=== PATIENT | male | born 1975 | race Caucasian/White ===

== ENCOUNTER 2016-05-18 06:26 | Emergency (ER) | payer OTHER ==
[~2016-05-18] VITALS: Ht 188 cm; Wt 74.0 kg
[~2016-05-18 06:26] MED LIST: LEXA10TA PO; LORA-475 PO; PHEN100 PO; PRAZ1 PO; SERO200T PO
[2016-05-18 06:28] VITALS: BP 127/72; PULSE 94; RESP 16; TEMP 98.1; O2SAT 97
[2016-05-18 07:18] VITALS: BP 125/77; PULSE 79; RESP 18; TEMP 97.8; O2SAT 99
[2016-05-18 09:09] LABS: AUTOMATED NEUTROPHIL # 3.8 TH/MM3 (1.8-7.7); BASOPHIL % 0.4 % (0.0-2.0); EOSINOPHIL % 0.4 % (0.0-4.0); HEMO FLAGS DIFF FINAL; LYMPH % 29.3 % (9.0-44.0); LYMPHOCYTE # 1.9 TH/MM3 (1.0-4.8); MEAN CELL VOLUME 90.3 FL (80.0-100.0); MEAN CORPUSCULAR HEMOGLOBIN 30.6 PG (27.0-34.0); MEAN CORPUSCULAR HGB CONC 33.9 % (32.0-36.0); MONO % 12.4 % (0.0-8.0); NEUT % 57.5 % (16.0-70.0); PLATELET COUNT 254 TH/MM3 (150-450); RED BLOOD COUNT 4.65 MIL/MM3 (4.50-5.90); RED CELL DISTRIBUTION WIDTH 14.7 % (11.6-17.2); WHITE BLOOD COUNT 6.5 TH/MM3 (4.0-11.0)
--- NOTE | 2016-05-18 09:17 | PD ---
HPI Chief Complaint: Psychiatric Symptoms Time Seen by Provider: 09:01 Travel History International Travel<30 days: No Contact w/Intl Traveler<30days: No Traveled to known affect area: No History of Present Illness HPI The patient is a 41-year-old male who presents emergency Department voluntarily for psychiatric evaluation. The patient has a history of PTSD and depression. The patient hasn't taken his Seroquel and other psychiatric medications, however , has not been taking his Dilantin for history of seizures. The patient's last seizure was approximately one month ago. The patient does have suicidal ideation, has previous episodes of suicide attempts with alcohol and drugs. The patient last drank alcohol last night and last used cocaine 2 days ago. He denies the ingestion of any medications in an attempt to kill himself. He does have auditory hallucinations, states voices are talking to him. Patient would like to be evaluated by psychiatry. He denies any current physical complaints including chest pain, shortness breath, nausea, vomiting, or abdominal pain. PFSH Past Medical History Blood Disorders: No Bipolar Disorder: Yes Anxiety: Yes Depression: Yes Heart Rhythm Problems: Yes (palpatations ) Cancer: No Cardiac Catheterization: Yes (10/2015 NO STENTS PLACED PER PT) Cardiovascular Problems: Yes ([place] ) High Cholesterol: No Chest Pain: Yes Diabetes: No Diminished Hearing: No Endocrine: No Genitourinary: Yes (Urinary frequency ) Headaches: Yes (See EMR) Hepatitis: Yes (C) Hypertension: No Immune Disorder: Yes (Hep C ) Implanted Vascular Access Dvce: No Musculoskeletal: Yes (arthritis right knee, chronic back pain. ) Neurologic: Yes (Bipolar disorder ) Psychiatric: Yes (Bipolar Disorder. ) Reproductive: No Respiratory: Yes (Difficulty breathing. ) Myocardial Infarction: Yes (OCTOBER 2015 PER PT) Seizures: Yes (See EMR) Tetanus Vaccination: Unknown Past Surgical History Eye Surgery: Yes (RIGHT) Other Surgery: Yes (Right eye surgery ) Social History Alcohol Use: Yes ( 4 4PACKSEVERYDAY) Tobacco Use: Yes (1 PKT DAILY) Substance Use: Yes (ALCOHOL, COCAINE) Allergies-Medications (Allergen,Severity, Reaction): Coded Allergies: Haldol (Verified Allergy, Severe, 05/18/16) per patient Reported Meds & Prescriptions Reported Meds & Active Scripts Active Minipress (Prazosin Hcl) 1 Mg Cap 1 Mg PO HS 3 Days Hold for symptoms of hypotension (including but not limited to light-headedness, dizziness, chest pain, shortness of breath) and call your outpatient provider. Reported Dilantin 100 Mg Kapseals (Phenytoin Sodium) 100 Mg Caper 200 Mg PO BID Ativan (Lorazepam) 2 Mg Tab 2 Mg PO BID Seroquel 200 mg (Quetiapine Fumarate) 200 Mg Tab 200 Mg PO HS Lexapro (Escitalopram Oxalate) 10 Mg Tab 10 Mg PO DAILY Review of Systems Except as stated in HPI: all other systems reviewed are Neg General / Constitutional: No: Fever Cardiovascular: No: Chest Pain or Discomfort Respiratory: No: Shortness of Breath Gastrointestinal: No: Nausea, Vomiting, Abdominal Pain Musculoskeletal: No: Weakness Neurologic: No: Dizziness Psychiatric: Positive: Depression, Suicidal Ideations, Disorder of Thought ( auditory hallucinations), Other (PTSD) Physical Exam Narrative GENERAL: Awake, alert, nontoxic-appearing 41 year old male who appears his stated age and is in no acute respiratory distress. SKIN: Warm and dry. HEAD: Atraumatic. Normocephalic. EYES: No scleral icterus. ENT: No nasal bleeding or discharge. Mucous membranes pink and moist. NECK: Trachea midline. No JVD. CARDIOVASCULAR: Regular rate and rhythm. No murmur appreciated. RESPIRATORY: No accessory muscle use. Clear to auscultation. Breath sounds equal bilaterally. GASTROINTESTINAL: Abdomen soft, non-tender, nondistended. No rebound tenderness. MUSCULOSKELETAL: No obvious deformities. No clubbing. No cyanosis. No edema. NEUROLOGICAL: Awake and alert. No obvious cranial nerve deficits. Motor grossly within normal limits. Normal speech. Oriented to person, place, month, and year. PSYCHIATRIC: Appropriate mood and affect; insight and judgment normal. Data Data Last Documented VS Vital Signs Date Time Temp Pulse Resp B/P Pulse Ox O2 Delivery O2 Flow Rate FiO2 05/18/16 07:18 78 18 05/18/16 07:18 97.8 125/77 99 Room Air Orders Complete Blood Count With Diff (05/18/16 08:41) Basic Metabolic Panel (Bmp) (05/18/16 08:41) Drug Screen, Random Urine (05/18/16 08:41) Alcohol (Ethanol) (05/18/16 08:41) Salicylates (Aspirin) (05/18/16 08:41) Tylenol (Acetaminophen) (05/18/16 08:41) Psych Screen (05/18/16 08:41) Phenytoin (Dilantin) (05/18/16 09:15) Phenytoin (Dilantin) (05/18/16 09:30) Labs Laboratory Tests Test 05/18/16 05/18/16 08:50 09:00 White Blood Count 6.5 TH/MM3 Red Blood Count 4.65 MIL/MM3 Hemoglobin 14.2 GM/DL Hematocrit 42.0 % Mean Corpuscular Volume 90.3 FL Mean Corpuscular Hemoglobin 30.6 PG Mean Corpuscular Hemoglobin 33.9 % Concent Red Cell Distribution Width 14.7 % Platelet Count 254 TH/MM3 Mean Platelet Volume 8.0 FL Neutrophils (%) (Auto) 57.5 % Lymphocytes (%) (Auto) 29.3 % Monocytes (%) (Auto) 12.4 % Eosinophils (%) (Auto) 0.4 % Basophils (%) (Auto) 0.4 % Neutrophils # (Auto) 3.8 TH/MM3 Lymphocytes # (Auto) 1.9 TH/MM3 Monocytes # (Auto) 0.8 TH/MM3 Eosinophils # (Auto) 0.0 TH/MM3 Basophils # (Auto) 0.0 TH/MM3 CBC Comment DIFF FINAL Differential Comment Sodium Level 140 MEQ/L Potassium Level 3.7 MEQ/L Chloride Level 103 MEQ/L Carbon Dioxide Level 29.4 MEQ/L Anion Gap 8 MEQ/L Blood Urea Nitrogen 8 MG/DL Creatinine 0.89 MG/DL Estimat Glomerular Filtration 93 ML/MIN Rate Random Glucose 72 MG/DL Calcium Level 8.5 MG/DL Salicylates Level LESS THAN 1.7 MG/DL Acetaminophen Level LESS THAN 2.0 MCG/ML Ethyl Alcohol Level LESS THAN 3 MG/DL Urine Opiates Screen NEG Urine Barbiturates Screen NEG Urine Amphetamines Screen NEG Urine Benzodiazepines Screen NEG Urine Cocaine Screen POS Urine Cannabinoids Screen NEG MDM Medical Decision Making Medical Screen Exam Complete: Yes Emergency Medical Condition: Yes Medical Record Reviewed: Yes Interpretation(s) Laboratory Tests Test 05/18/16 05/18/16 08:50 09:00 White Blood Count 6.5 TH/MM3 Red Blood Count 4.65 MIL/MM3 Hemoglobin 14.2 GM/DL Hematocrit 42.0 % Mean Corpuscular Volume 90.3 FL Mean Corpuscular Hemoglobin 30.6 PG Mean Corpuscular Hemoglobin 33.9 % Concent Red Cell Distribution Width 14.7 % Platelet Count 254 TH/MM3 Mean Platelet Volume 8.0 FL Neutrophils (%) (Auto) 57.5 % Lymphocytes (%) (Auto) 29.3 % Monocytes (%) (Auto) 12.4 % Eosinophils (%) (Auto) 0.4 % Basophils (%) (Auto) 0.4 % Neutrophils # (Auto) 3.8 TH/MM3 Lymphocytes # (Auto) 1.9 TH/MM3 Monocytes # (Auto) 0.8 TH/MM3 Eosinophils # (Auto) 0.0 TH/MM3 Basophils # (Auto) 0.0 TH/MM3 CBC Comment DIFF FINAL Differential Comment Sodium Level 140 MEQ/L Potassium Level 3.7 MEQ/L Chloride Level 103 MEQ/L Carbon Dioxide Level 29.4 MEQ/L Anion Gap 8 MEQ/L Blood Urea Nitrogen 8 MG/DL Creatinine 0.89 MG/DL Estimat Glomerular Filtration 93 ML/MIN Rate Random Glucose 72 MG/DL Calcium Level 8.5 MG/DL Salicylates Level LESS THAN 1.7 MG/DL Acetaminophen Level LESS THAN 2.0 MCG/ML Ethyl Alcohol Level LESS THAN 3 MG/DL Urine Opiates Screen NEG Urine Barbiturates Screen NEG Urine Amphetamines Screen NEG Urine Benzodiazepines Screen NEG Urine Cocaine Screen POS Urine Cannabinoids Screen NEG Differential Diagnosis Differential diagnosis includes mood disorder nos, schizoaffective disorder, bipolar affective disorder, PTSD, depression, suicidal ideation, substance induced mood disorder. Narrative Course Labs are drawn and sent. Patient states he has been noncompliant with his Dilantin, last seizure was one month ago. Dilantin level was sent to lab. Patient is medically cleared to be evaluated by psychiatry. Disposition as per psych. ABC and BMP are unremarkable. Alcohol was less than 3. Tox screen was positive for cocaine. Diagnosis Primary Impression: Bipolar disorder with psychotic features Additional Impression: PTSD (post-traumatic stress disorder) Condition: Stable Robert Sheets MD May 18, 2016 09:17
[2016-05-18 09:18] LABS: AMPHETAMINE, URINE NEG (NEG); BARBITURATES, URINE NEG (NEG); COCAINE, URINE POS (NEG)
[2016-05-18 09:28] LABS: ANION GAP 8 MEQ/L (5-15); BICARBONATE 29.4 MEQ/L (21.0-32.0); BLOOD UREA NITROGEN 8 MG/DL (7-18); CHLORIDE 103 MEQ/L (98-107); GLOMERULAR FILTRATION RATE 93 ML/MIN (>89); POTASSIUM 3.7 MEQ/L (3.5-5.1); SODIUM (NA) 140 MEQ/L (136-145)
[2016-05-18 09:29] LABS: ACETAMINOPHEN LESS THAN 2.0 MCG/ML (10.0-30.0)
[2016-05-18] MEDS ORDERED: PHENYTOIN SODIUM 100 MG CAP PO ONE (09:30)
[2016-05-18] MEDS ORDERED: PRAZ1 PO (09:53)
[2016-05-18] MEDS ORDERED: LORA2TAB7 PO (09:53)
[2016-05-18] MEDS ORDERED: DILANTIN (09:53)
[2016-05-18] MEDS ORDERED: LEXA10TA PO (09:53)
[2016-05-18] MEDS ORDERED: SERO200T PO (09:53)
--- NOTE | 2016-05-18 13:22 | PD.CONS ---
Provisional Diagnosis Admission Date [place]. Substance-induced mood disorder, cocaine use disorder History of Present Illness Service Psychiatry Consult Requested By Primary Care Physician No Primary Care Physician HPI The patient is a 41-year-old man, with psychiatric history of cocaine use disorder, depression and bipolar disorder, numerous hospitalizations, previous suicidal attempts, who who presents emergency Department voluntarily for psychiatric evaluation. The patient has a history of PTSD and depression. The patient hasn't taken his Seroquel and other psychiatric medications, however , has not been taking his Dilantin for history of seizures. The patient's last seizure was approximately one month ago. The patient does have suicidal ideation, has previous episodes of suicide attempts with alcohol and drugs. The patient last drank alcohol last night and last used cocaine 2 days ago. He denies the ingestion of any medications in an attempt to kill himself. He does have auditory hallucinations, states voices are talking to him. Patient would like to be evaluated by psychiatry. Patient is seen by psychiatric today, patient now is clinically sober, he denies depression, denies anxiety, denies suicidal or homicidal ideation, he denies visual and auditory hallucinations, patient says that he is motivated to go to a detox program and asked to be referred to one. Patient is fully oriented 3, he reports daily use of cocaine and alcohol, he uses about 2 or 3 bags of cocaine and about 12-18 cans of beer. Review of Systems Constitutional: DENIES: Diaphoretic episodes, Fatigue, Fever, Weight gain, Weight loss, Chills, Dizziness, Change in appetite, Night Sweats Endocrine: DENIES: Heat/cold intolerance, Polydipsia, Polyuria, Polyphagia Eyes: DENIES: Blurred vision, Diplopia, Eye inflammation, Eye pain, Vision loss , Photosensitivity, Double Vision Ears, nose, mouth, throat: DENIES: Tinnitus, Hearing loss, Vertigo, Nasal discharge, Oral lesions, Throat pain, Hoarseness, Ear Pain, Running Nose, Epistaxis, Sinus Pain, Toothache, Odynophagia Respiratory: DENIES: Apneas, Cough, Snoring, Wheezing, Hemoptysis, Sputum production, Shortness of breath Cardiovascular: DENIES: Chest pain, Palpitations, Syncope, Dyspnea on Exertion , PND, Lower Extremity Edema, Orthopnea, Claudication Gastrointestinal: DENIES: Abdominal pain, Black stools, Bloody stools, Constipation, Diarrhea, Nausea, Vomiting, Difficulty Swallowing, Anorexia Genitourinary: DENIES: Sexual dysfunction, Urinary frequency, Urinary incontinence, Urgency, Hematuria, Dysuria, Nocturia, Penile Discharge, Testicular Pain, Testicular Swelling Musculoskeletal: DENIES: Joint pain, Muscle aches, Stiffness, Joint Swelling, Back pain, Neck pain Integumentary: DENIES: Abnormal pigmentation, Nail changes, Pruritus, Rash Hematologic/lymphatic: DENIES: Bruising, Lymphadenopathy Immunologic/allergic: DENIES: Eczema, Urticaria Neurologic: DENIES: Abnormal gait, Headache, Localized weakness, Paresthesias, Seizures, Speech Problems, Tremor, Poor Balance Psychiatric: DENIES: Anxiety, Confusion, Mood changes, Depression, Hallucinations, Agitation, Suicidal Ideation, Homicidal Ideation, Delusions Past Family Social History Coded Allergies: Haldol (Verified Allergy, Severe, 05/18/16) per patient Reported Medications Quetiapine (Seroquel)200 Mg [id number] Mg PO HS Ref 0 05/18/16 Lorazepam 2 Mg Tab2 Mg PO BID PRN (ANXIETY) Ref 0 05/18/16 Prazosin (Minipress)1 Mg Cap1 Mg PO HS #60 CAP Ref 0 05/18/16 Escitalopram (Lexapro)10 Mg Tab10 Mg PO DAILY Ref 0 05/18/16 [Dilantin ] No Conflict [id number] Bid 05/18/16 Social History Patient was born in [facility], he is domiciled alone in the [place], he is unemployed, single, highest level of education is 11th grade Physical Exam Vital Signs Vital Signs Date Time Temp Pulse Resp B/P Pulse Ox O2 Delivery O2 Flow Rate FiO2 05/18/16 07:18 78 18 05/18/16 07:18 97.8 125/77 99 Room Air Mental Status Examination Speech: Unremarkable Orientation: x3 Memory: Unremarkable Thought Process: Logical Thought Content: Unremarkable Hallucination Type: None Attention and Concentration: Good Suicidal Ideation: No Previous Suicide Attempts: Yes Homicidal Ideation: No Previous Homicide Attempts: No Judgement: WNL Affect: Good Mood: Appropriate Motor Activity: Normal gait Assessment & Plan Problem List: (1) Cocaine abuse Assessment & Plan: At the moment of this evaluation the patient does not present any acute depression, anxiety, lavon or perceptual disturbances. Patient denies suicidal and homicidal ideation. Patient denies visual and auditory hallucinations. He does not meet criteria for psychiatric admission at this moment. Greenwood act will be lifted. ICD Code: F14.10 Assessment & Plan Estimated LOS: Apollo Shaw MD May 18, 2016 13:21
[2016-05-19] MEDS ORDERED: DILA100C PO (09:06)
== END 2016-05-18 11:47 | disposition home or self-care (01) ==
LOC: NEPA 06:26
DX: F31.9 Bipolar disorder, unspecified (principal); F43.10 Post-traumatic stress disorder, unspecified; F14.14 Cocaine abuse with cocaine-induced mood disorder
CPT/HCPCS: 80048; 80185; 80307; 80320; 80329; 85025; 99283; G0480

== ENCOUNTER 2016-05-21 22:47 | Inpatient (IN) | payer OTHER ==
[~2016-05-21] VITALS: Ht 185.4 cm; Wt 73.9 kg
[~2016-05-21 22:47] MED LIST changes: +DILA100C PO; -LORA-475 PO; +LORA2TAB7 PO; -PHEN100 PO
--- NOTE | 2016-05-21 23:43 | PD ---
HPI Chief Complaint: [place]wood act Time Seen by Provider: 23:35 Travel History International Travel<30 days: No Contact w/Intl Traveler<30days: No Traveled to known affect area: No History of Present Illness HPI The patient is a 41-year-old male who presents to the emergency department as a [place]wood act. According to police affidavit the patient with Dr. Busby officer and stated he was suicidal, having thoughts of killing himself, and an attempt to harm himself, he cut several superficial lacerations to the right forearm. The patient does have a history of schizoaffective disorder and PTSD for which she takes medications. The patient is supposed to be taking Seroquel and another medication. He does admit to drinking alcohol earlier tonight, denies any illicit drug use. He does play to suicidal ideation, but denies any homicidal ideation. He also states he occasionally hears voices, auditory hallucinations, that tell him to harm himself. He denies any visual hallucinations. Symptoms are moderate, there are no alleviating or exacerbating factors. PFSH Past Medical History Blood Disorders: No Bipolar Disorder: Yes Anxiety: Yes Depression: Yes Heart Rhythm Problems: Yes (palpatations ) Cancer: No Cardiac Catheterization: Yes (10/2015 NO STENTS PLACED PER PT) Cardiovascular Problems: Yes ([place] ) High Cholesterol: No Chest Pain: Yes Diabetes: No Diminished Hearing: No Endocrine: No Genitourinary: Yes (Urinary frequency ) Headaches: Yes (See EMR) Hepatitis: Yes (C) Hypertension: No Immune Disorder: Yes (Hep C ) Implanted Vascular Access Dvce: No Musculoskeletal: Yes (arthritis right knee, chronic back pain. ) Neurologic: Yes (Bipolar disorder ) Psychiatric: Yes (Bipolar Disorder. ) Reproductive: No Respiratory: Yes (Difficulty breathing. ) Myocardial Infarction: Yes (OCTOBER 2015 PER PT) Seizures: Yes (See EMR) Past Surgical History Eye Surgery: Yes (RIGHT) Other Surgery: Yes (Right eye surgery ) Social History Alcohol Use: Yes ( 4 4PACKSEVERYDAY) Tobacco Use: Yes (1 PKT DAILY) Substance Use: Yes (ALCOHOL, COCAINE) Allergies-Medications (Allergen,Severity, Reaction): Coded Allergies: Haldol (Verified Allergy, Severe, 05/21/16) per patient Reported Meds & Prescriptions Reported Meds & Active Scripts Active Reported Dilantin (Phenytoin Extended) 100 Mg Cap 200 Mg PO BID Seroquel (Quetiapine Fumarate) 200 Mg Tab 200 Mg PO HS Lorazepam 2 Mg Tab 2 Mg PO BID PRN Minipress (Prazosin HCl) 1 Mg Cap 1 Mg PO HS Lexapro (Escitalopram Oxalate) 10 Mg Tab 10 Mg PO DAILY Review of Systems Except as stated in HPI: all other systems reviewed are Neg General / Constitutional: No: Fever Cardiovascular: No: Chest Pain or Discomfort Respiratory: No: Shortness of Breath Gastrointestinal: No: Nausea, Vomiting, Abdominal Pain Musculoskeletal: No: Myalgias Skin: Positive Other (superficial self-inflicted lacerations right forearm) Psychiatric: Positive: Suicidal Ideations, Disorder of Thought, Substance Abuse (alcohol use), Other (PTSD) Physical Exam Narrative GENERAL: Awake, alert, pleasant 41-year-old male who appears his stated age and is in no acute respiratory distress. SKIN: Warm and dry. Superficial self-inflicted transverse lacerations right forearm that do not go through the dermis. HEAD: Atraumatic. Normocephalic. EYES: Pupils equal and round. 3 mm bilateral and reactive. ENT: No nasal bleeding or discharge. Mucous membranes pink and moist. NECK: Trachea midline. No JVD. CARDIOVASCULAR: Regular rate and rhythm. No murmur appreciated. RESPIRATORY: No accessory muscle use. Clear to auscultation. Breath sounds equal bilaterally. GASTROINTESTINAL: Abdomen soft, non-tender, nondistended. No rebound tenderness. MUSCULOSKELETAL: No obvious deformities. No clubbing. No cyanosis. No edema. NEUROLOGICAL: Awake and alert. No obvious cranial nerve deficits. Motor grossly within normal limits. Normal speech. Nonfocal. Oriented to person, place, month, year, and chocolate coater. PSYCHIATRIC: Flat affect. Data Data Orders Complete Blood Count With Diff (05/21/16 23:39) Comprehensive Metabolic Panel (05/21/16 23:39) Drug Screen, Random Urine (05/21/16 23:39) Alcohol (Ethanol) (05/21/16 23:39) Psych Screen (05/21/16 23:39) Tetanus/Diphtheria Tox Adult (Tetanus/Di (05/21/16 23:45) Wound Care (05/21/16 23:43) Labs Laboratory Tests Test 05/21/16 23:45 White Blood Count 8.4 TH/MM3 Red Blood Count 4.83 MIL/MM3 Hemoglobin 14.8 GM/DL Hematocrit 43.1 % Mean Corpuscular Volume 89.1 FL Mean Corpuscular Hemoglobin 30.7 PG Mean Corpuscular Hemoglobin 34.5 % Concent Red Cell Distribution Width 14.2 % Platelet Count 282 TH/MM3 Mean Platelet Volume 7.8 FL Neutrophils (%) (Auto) 67.0 % Lymphocytes (%) (Auto) 23.2 % Monocytes (%) (Auto) 9.3 % Eosinophils (%) (Auto) 0.1 % Basophils (%) (Auto) 0.4 % Neutrophils # (Auto) 5.7 TH/MM3 Lymphocytes # (Auto) 2.0 TH/MM3 Monocytes # (Auto) 0.8 TH/MM3 Eosinophils # (Auto) 0.0 TH/MM3 Basophils # (Auto) 0.0 TH/MM3 CBC Comment DIFF FINAL Differential Comment Sodium Level 141 MEQ/L Potassium Level 3.5 MEQ/L Chloride Level 102 MEQ/L Carbon Dioxide Level 33.1 MEQ/L Anion Gap 6 MEQ/L Blood Urea Nitrogen 14 MG/DL Creatinine 1.04 MG/DL Estimat Glomerular Filtration 78 ML/MIN Rate Random Glucose 81 MG/DL Calcium Level 8.9 MG/DL Total Bilirubin 0.5 MG/DL Aspartate Amino Transf 33 U/L (AST/SGOT) Alanine Aminotransferase 38 U/L (ALT/SGPT) Alkaline Phosphatase 69 U/L Total Protein 7.8 GM/DL Albumin 3.7 GM/DL Ethyl Alcohol Level 20 MG/DL MDM Medical Decision Making Medical Screen Exam Complete: Yes Emergency Medical Condition: Yes Medical Record Reviewed: Yes Interpretation(s) Laboratory Tests Test 05/21/16 23:45 White Blood Count 8.4 TH/MM3 Red Blood Count 4.83 MIL/MM3 Hemoglobin 14.8 GM/DL Hematocrit 43.1 % Mean Corpuscular Volume 89.1 FL Mean Corpuscular Hemoglobin 30.7 PG Mean Corpuscular Hemoglobin 34.5 % Concent Red Cell Distribution Width 14.2 % Platelet Count 282 TH/MM3 Mean Platelet Volume 7.8 FL Neutrophils (%) (Auto) 67.0 % Lymphocytes (%) (Auto) 23.2 % Monocytes (%) (Auto) 9.3 % Eosinophils (%) (Auto) 0.1 % Basophils (%) (Auto) 0.4 % Neutrophils # (Auto) 5.7 TH/MM3 Lymphocytes # (Auto) 2.0 TH/MM3 Monocytes # (Auto) 0.8 TH/MM3 Eosinophils # (Auto) 0.0 TH/MM3 Basophils # (Auto) 0.0 TH/MM3 CBC Comment DIFF FINAL Differential Comment Sodium Level 141 MEQ/L Potassium Level 3.5 MEQ/L Chloride Level 102 MEQ/L Carbon Dioxide Level 33.1 MEQ/L Anion Gap 6 MEQ/L Blood Urea Nitrogen 14 MG/DL Creatinine 1.04 MG/DL Estimat Glomerular Filtration 78 ML/MIN Rate Random Glucose 81 MG/DL Calcium Level 8.9 MG/DL Total Bilirubin 0.5 MG/DL Aspartate Amino Transf 33 U/L (AST/SGOT) Alanine Aminotransferase 38 U/L (ALT/SGPT) Alkaline Phosphatase 69 U/L Total Protein 7.8 GM/DL Albumin 3.7 GM/DL Ethyl Alcohol Level 20 MG/DL Differential Diagnosis Differential diagnoses includes depressive disorder, bipolar affective disorder , schizoaffective disorder, schizophrenia, substance induced mood disorder, PTSD , noncompliance. Narrative Course Labs were drawn and sent. Psychiatric evaluation was ordered. Labs are unremarkable except for alcohol of 20. The patient is medically clear to be evaluated by psychiatry. Disposition as per psych. Diagnosis Primary Impression: History of bipolar disorder Additional Impression: Chronic post-traumatic stress disorder (PTSD) Condition: Stable Robert Sheets MD May 21, 2016 23:43
[2016-05-21] MEDS ORDERED: TETANUS/DIPHTHERIA TOXOID ADULT 0.5 ML VIAL IM ONE (23:45)
[2016-05-21 23:55] LABS: AUTOMATED NEUTROPHIL # 5.7 TH/MM3 (1.8-7.7); BASOPHIL % 0.4 % (0.0-2.0); EOSINOPHIL % 0.1 % (0.0-4.0); HEMATOCRIT 43.1 % (39.0-51.0); HEMO FLAGS DIFF FINAL; LYMPH % 23.2 % (9.0-44.0); MEAN CELL VOLUME 89.1 FL (80.0-100.0); MEAN CORPUSCULAR HEMOGLOBIN 30.7 PG (27.0-34.0); MEAN CORPUSCULAR HGB CONC 34.5 % (32.0-36.0); MONO % 9.3 % (0.0-8.0); PLATELET COUNT 282 TH/MM3 (150-450); RED BLOOD COUNT 4.83 MIL/MM3 (4.50-5.90); RED CELL DISTRIBUTION WIDTH 14.2 % (11.6-17.2); WHITE BLOOD COUNT 8.4 TH/MM3 (4.0-11.0)
[2016-05-22 00:15] LABS: ALT (GPT) 38 U/L (12-78); ANION GAP 6 MEQ/L (5-15); AST (GOT) 33 U/L (15-37); BICARBONATE 33.1 MEQ/L (21.0-32.0); BLOOD UREA NITROGEN 14 MG/DL (7-18); CHLORIDE 102 MEQ/L (98-107); GLOMERULAR FILTRATION RATE 78 ML/MIN (>89); POTASSIUM 3.5 MEQ/L (3.5-5.1); SODIUM (NA) 141 MEQ/L (136-145)
[2016-05-22 00:17] LABS: ALKALINE PHOSPHATASE 69 U/L (45-117); TOTAL BILIRUBIN ADULT 0.5 MG/DL (0.2-1.0)
[2016-05-22 01:17] VITALS: BP 115/74; PULSE 72; RESP 20; O2SAT 100
[2016-05-22 02:27] LABS: AMPHETAMINE, URINE NEG (NEG); BARBITURATES, URINE NEG (NEG); COCAINE, URINE POS (NEG)
[2016-05-22] MEDS ORDERED: LORazepam 1 MG TAB PO ONE (08:30)
[2016-05-22 12:49] VITALS: BP 118/60; PULSE 61; RESP 18; TEMP 98.3; O2SAT 98
[2016-05-22] MEDS ORDERED: diphenhydrAMINE HCL 50 MG CAP PO PRN (15:15)
[2016-05-22] MEDS ORDERED: MAGNESIUM HYDROXIDE SUSP 30 ML CUP PO PRN (15:30)
[2016-05-22] MEDS ORDERED: traZODone HCL 50 MG TAB PO PRN (15:30)
[2016-05-22] MEDS ORDERED: ALUMINUM/MAGNESIUM/SIMETH 30 ML CUP PO PRN (15:30)
[2016-05-22] MEDS ORDERED: diphenhydrAMINE HCL 50 MG/ML VIAL IM PRN (15:30)
[2016-05-22] MEDS ORDERED: ACETAMINOPHEN 325 MG TAB PO PRN (15:30)
[2016-05-22] MEDS ORDERED: LORazepam 1 MG TAB PO PRN (15:30)
[2016-05-22] MEDS ORDERED: LORazepam 2 MG/ML VIAL IM PRN (15:30)
--- NOTE | 2016-05-22 16:25 | PD.CONS ---
HPI Service [facility] Hospitalists Consult Requested By Dr Hargrove Reason for Consult medical management Primary Care Physician No Primary Care Physician Diagnoses: History of Present Illness Mr. Sarabia is a 41-year-old male with a history of seizures, bipolar disorder, post-traumatic stress disorder, hepatitis C, and chronic back pain admitted to inpatient psych. Hospitalist is consulted for medical management. Patient was brought in by police , he was BA. Pt stated he was suicidal, having thoughts of killing himself, and an attempt to harm himself, he cut several superficial lacerations to the right forearm. The patient does have a history of schizoaffective disorder and PTSD for which she takes medications. The patient is supposed to be taking Seroquel and another medication. He does admit to drinking alcohol earlier tonight, denies any illicit drug use. He does play to suicidal ideation, but denies any homicidal ideation. He also states he occasionally hears voices, auditory hallucinations, that tell him to harm himself. He denies any visual hallucinations. Symptoms are moderate, there are no alleviating or exacerbating factors. Has no complaints at this time. Review of Systems Constitutional: DENIES: Fever, Chills, Change in appetite Endocrine: DENIES: Heat/cold intolerance Eyes: DENIES: Blurred vision, Eye pain Ears, nose, mouth, throat: DENIES: Tinnitus, Hearing loss, Vertigo, Nasal discharge, Oral lesions, Throat pain, Hoarseness, Ear Pain, Running Nose, Epistaxis, Sinus Pain, Toothache, Odynophagia Respiratory: DENIES: Apneas, Cough, Snoring, Wheezing, Hemoptysis, Sputum production, Shortness of breath Cardiovascular: DENIES: Chest pain, Palpitations, Syncope, Dyspnea on Exertion , PND, Lower Extremity Edema, Orthopnea, Claudication Gastrointestinal: DENIES: Abdominal pain, Black stools, Bloody stools, Constipation, Diarrhea, Nausea, Vomiting, Difficulty Swallowing, Anorexia Genitourinary: DENIES: Urgency, Hematuria Musculoskeletal: DENIES: Joint pain, Muscle aches, Stiffness, Joint Swelling, Back pain, Neck pain Integumentary: DENIES: Rash Neurologic: DENIES: Abnormal gait, Headache, Localized weakness, Paresthesias, Seizures, Speech Problems, Tremor, Poor Balance Psychiatric: COMPLAINS OF: Anxiety, Depression, Hallucinations Past Family Social History Allergies: Coded Allergies: Haldol (Verified Allergy, Severe, 05/21/16) per patient Past Medical History seizures bipolar disorder post-traumatic stress disorder hepatitis C chronic back pain ?MS? Past Surgical History right eye surgery Reported Medications Reported Meds & Active Scripts Active Reported Dilantin (Phenytoin Extended) 100 Mg Cap 200 Mg PO BID Seroquel (Quetiapine Fumarate) 200 Mg Tab 200 Mg PO HS Lorazepam 2 Mg Tab 2 Mg PO BID PRN Minipress (Prazosin HCl) 1 Mg Cap 1 Mg PO HS Lexapro (Escitalopram Oxalate) 10 Mg Tab 10 Mg PO DAILY Family History Mother with anxiety, depression, hypertension Social History Tobacco: Denies Alcohol: Denies Illicit Drugs: Denies Physical Exam Vital Signs Vital Signs Date Time Temp Pulse Resp B/P Pulse Ox O2 Delivery O2 Flow Rate FiO2 05/22/16 12:49 98.3 61 18 118/60 98 Room Air 05/22/16 01:17 72 20 115/74 100 Physical Exam GENERAL: This is a well-nourished, well-developed patient, in no apparent distress. SKIN: No rashes, ecchymoses or lesions. Cool and dry. HEAD: Atraumatic. Normocephalic. No temporal or scalp tenderness. EYES: Pupils equal round and reactive. Extraocular motions intact. No scleral icterus. No injection or drainage. ENT: Nose without bleeding, purulent drainage or septal hematoma. Throat without erythema, tonsillar hypertrophy or exudate. Uvula midline. Airway patent. NECK: Trachea midline. No JVD or lymphadenopathy. Supple, nontender, no meningeal signs. CARDIOVASCULAR: Regular rate and rhythm without murmurs, gallops, or rubs. RESPIRATORY: Clear to auscultation. Breath sounds equal bilaterally. No wheezes , rales, or rhonchi. GASTROINTESTINAL: Abdomen soft, non-tender, nondistended. No hepato-splenomegaly , or palpable masses. No guarding. MUSCULOSKELETAL: Extremities without clubbing, cyanosis, or edema. No joint tenderness, effusion, or edema noted. No calf tenderness. Negative Homans sign bilaterally. NEUROLOGICAL: Awake and alert. Cranial nerves II through XII intact. Motor and sensory grossly within normal limits. Five out of 5 muscle strength in all muscle groups. Normal speech. Laboratory Laboratory Tests Test 05/21/16 05/22/16 23:45 01:30 White Blood Count 8.4 Red Blood Count 4.83 Hemoglobin 14.8 Hematocrit 43.1 Mean Corpuscular Volume 89.1 Mean Corpuscular Hemoglobin 30.7 Mean Corpuscular Hemoglobin 34.5 Concent Red Cell Distribution Width 14.2 Platelet Count 282 Mean Platelet Volume 7.8 Neutrophils (%) (Auto) 67.0 Lymphocytes (%) (Auto) 23.2 Monocytes (%) (Auto) 9.3 Eosinophils (%) (Auto) 0.1 Basophils (%) (Auto) 0.4 Neutrophils # (Auto) 5.7 Lymphocytes # (Auto) 2.0 Monocytes # (Auto) 0.8 Eosinophils # (Auto) 0.0 Basophils # (Auto) 0.0 CBC Comment DIFF FINAL Differential Comment Sodium Level 141 Potassium Level 3.5 Chloride Level 102 Carbon Dioxide Level 33.1 Anion Gap 6 Blood Urea Nitrogen 14 Creatinine 1.04 Estimat Glomerular Filtration 78 Rate Random Glucose 81 Calcium Level 8.9 Total Bilirubin 0.5 Aspartate Amino Transf 33 (AST/SGOT) Alanine Aminotransferase 38 (ALT/SGPT) Alkaline Phosphatase 69 Total Protein 7.8 Albumin 3.7 Ethyl Alcohol Level 20 Urine Opiates Screen NEG Urine Barbiturates Screen NEG Urine Amphetamines Screen NEG Urine Benzodiazepines Screen NEG Urine Cocaine Screen POS Urine Cannabinoids Screen NEG Result Diagram: 05/21/16 2345 05/21/162344 Assessment and Plan Assessment and Plan Mr. Sarabia is a 41-year-old male with a history of seizures, bipolar disorder, post-traumatic stress disorder, hepatitis C, and chronic back pain admitted to inpatient psych. Hospitalist is consulted for medical management Psychiatric illness. Bipolar disorder. Posttraumatic stress disorder. - management per psychiatry Seizure disorder. Stable. No recent seizures. - Resume home meds Dilantin - monitor Resume home meds. DVT prophylaxis- ambulation Stable at this time. Will sign off reconsult as need. Thank you for this consultation. Discussed Condition With pt, nurse Jasmyne Hassan MD May 22, 2016 16:25
[2016-05-22 16:45] VITALS: BP 115/66; PULSE 62; RESP 18; TEMP 97.7; O2SAT 99
[2016-05-22 20:00] VITALS: BP 112/67; PULSE 63; RESP 18; TEMP 97.7; O2SAT 98
[2016-05-22] MEDS: PRAZOSIN HCL 1 MG CAP PO SCH (20:38)
[2016-05-22] MEDS: PHENYTOIN SODIUM 100 MG CAP PO SCH (20:38)
[2016-05-23 05:42] VITALS: BP 120/75; PULSE 72; RESP 16; TEMP 98.1; O2SAT 98
[2016-05-23 06:57] LABS: ANION GAP 7 MEQ/L (5-15); BICARBONATE 27.5 MEQ/L (21.0-32.0); BLOOD UREA NITROGEN 15 MG/DL (7-18); CHLORIDE 104 MEQ/L (98-107); GLOMERULAR FILTRATION RATE 92 ML/MIN (>89); HDL CHOLESTEROL 50.1 MG/DL (40.0-60.0); LDL CHOLESTEROL 32 MG/DL (0-99); POTASSIUM 3.7 MEQ/L (3.5-5.1); SODIUM (NA) 138 MEQ/L (136-145)
[2016-05-23] MEDS: NICOTINE 21 MG/24 HR PATCH T-DERMAL SCH (09:00)
[2016-05-23] MEDS: REMOVE OLD NICOTINE PATCH T-DERMAL SCH (09:00)
[2016-05-23] MEDS: PHENYTOIN SODIUM 100 MG CAP PO SCH ×2 (09:04→21:16)
[2016-05-23] MEDS ORDERED: INFLUENZA VIRUS VACCINE (QUADRIVALENT) 0.5 ML SYR IM ONE (10:00)
[2016-05-23] MEDS ORDERED: PNEUMOCOCCAL POLYVALENT INJ 25 MCG/0.5 ML SYR IM ONE (10:00)
--- NOTE | 2016-05-23 13:25 | HHI.HP ---
Provisional Diagnosis Admission Date May 22, 2016 at 15:08 [place] I. Bipolar affective disorder depressed. History of substance abuse cocaine and alcohol. [place] II. Passive-dependent antisocial trait [place] III. Please see the emergency room evaluation [place] IV. Moderate stress difficulty coping [place] V. GAF of 45 Certification of Person's Competence To Provide Express and Informed Consent I have personally examined Rodolfo Patel , a [facility] on, May 23, 2016 13:15. Express and informed consent means consent voluntarily given in writing, by a competent person, after sufficient explanation and disclosure of the subject matter involved to enable the person to make a knowing and willful decision without any element of force, fraud, deceit, duress, or other form of constraint or coercion. This person is 18 years of age or older, is not now known to be incompetent to consent to treatment with a guardian advocate, and does not have a health care surrogate or proxy currently making medical treatment decisions. I have found this person to be one of the following: [x] Competent to provide express and informed consent, as defined above, for voluntary admission to this facility and is competent to provide express and informed consent for treatment. He/she has the consistent capacity to make well reasoned, willful, and knowing decisions concerning his or her medical or mental health treatment. The person fully and consistently understands the purpose of the admission for examination/placement and is fully capable of personally exercising all rights assured [place] Incompetent to provide express and informed consent to voluntary admission, and this is incompetent to provide express and informed consent to treatment. The person must be transferred to involuntary status and a petition for a guardian advocate filed with the Circuit Court. [] Refusing to provide express and informed consent to voluntary admission but is competent to provide express and informed consent for treatment. The person must be discharged or transferred to involuntary status. Form shall be completed within 24 hours of a person's arrival at the receiving facility and filed in the clinical record of each person: 1. Admitted on a voluntary basis 2. Permitted to provide express and informed consent to his/her own treatment 3. Allowed to transfer from involuntary to voluntary status 4. Prior to permitting a person to consent to his or her own treatment after having been previously found incompetent to consent to treatment. History of Present Illness Capacity: Has Capacity HPI This is a 41-year-old black male [facility] Has a history of bipolar affective disorder posttraumatic stress disorder alcohol abuse or drug-induced mood disorder. Was hospitalized under [place] act because he wanted to get in the hospital as his girlfriend was in the custodial. So he superficially cut himself and called the police and said that he was suicidal and he was hearing voices. Patient claimed that he was lying all he wanted to do is just to come back in the hospital. He was abusing cocaine about 3 days ago. He does want to go for rehabilitation and stay away from that in [place]. Today he heard from his girlfriend was released from the custodial and now he wants to patient wants to be discharged and follow-up as an outpatient. Patient denies any active suicidal ideation intentions or plan. He denies any auditory or visual hallucinations. Denied any paranoid delusion. No side effects were complained from the medication. He has been taking Dilantin and Seroquel. Willing to sign voluntary and stay 1 more day for observation Review of Systems Except as stated in HPI: all other systems reviewed are Neg Psychiatric: COMPLAINS OF: Mood changes, Depression Past Psych History Psychological trauma history Patient denied any physical verbal or sexual abuse growing up Violence risk - others (6 mos) Patient denied Violence risk - self (6 mos) Patient did admit to some suicidal thoughts to manipulate and get into the hospital but now he denies it Substance Abuse History Drugs/Alcohol past 12 months Admitted to alcohol and cocaine abuse Past Family Social History Coded Allergies: Haldol (Verified Allergy, Severe, 05/21/16) per patient Reported Medications Phenytoin Extended (Dilantin)100 Mg [id number] Mg PO BID Ref 0 05/19/16 Quetiapine (Seroquel)200 Mg [id number] Mg PO HS Ref 0 05/18/16 Lorazepam 2 Mg Tab2 Mg PO BID PRN (ANXIETY) Ref 0 05/18/16 Prazosin (Minipress)1 Mg Cap1 Mg PO HS #60 CAP Ref 0 05/18/16 Escitalopram (Lexapro)10 Mg Tab10 Mg PO DAILY Ref 0 05/18/16 Current Medications Medications (Trade) Dose Ordered Sig/Lupe Route Start Time Stop Time Status Last Admin (Ativan) 1 mg Q6H PRN PO 1/10/17 15:30 (Ativan Inj) 1 mg Q6H PRN IM 05/22/16 15:30 (Benadryl) 50 mg Q6H PRN PO 05/22/16 15:15 (Benadryl Inj) 50 mg Q6H PRN IM 05/22/16 15:30 (Desyrel) 50 mg HS PRN PO 05/22/16 15:30 05/22/16 20:38 (Tylenol) 650 mg Q4H PRN PO 05/22/16 15:30 (Milk Of Magnesia Liq) 30 ml DAILY PRN PO 05/22/16 15:30 (Mag-Al Plus Susp Liq) 30 ml Q6H PRN PO 05/22/16 15:30 (Habitrol 21 Mg Patch.24 Hr) 1 patch DAILY T-DERMAL 05/23/16 09:00 Miscellaneous Information 1 DAILY T-DERMAL 05/23/16 09:00 (Dilantin) 200 mg BID PO 05/22/16 21:00 05/23/16 09:04 (Minipress) 1 mg HS PO 05/22/16 21:00 05/22/16 20:38 Family History Positive for depression and alcohol abuse in mother Social History Patient was born in [facility]. He has 2 sisters and 1 brother. He was close to his father. His mother had a problem with depression and drug abuse. Patient denied any physical verbal or sexual abuse growing up. However he did admit to going through some special education and finished 11th grade. He worked odd jobs. He has never been he does not have any children he started to abuse alcohol at the age of 15 and 2 years ago he started cocaine. Now he wants to go to rehabilitation center. And get some help. He also has a diagnosis of bipolar affective disorder posttraumatic stress disorder and substance abuse. Patient's Strengths (min. 2) Patient is cooperative and willing to sign voluntary and take the medication Physical Exam Patient denied any physical complaints he has a history of seizure disorder and has been taking medication Dilantin. Vital signs are stable. He was medically cleared with agree with the ER physician note Vital Signs Vital Signs Date Time Temp Pulse Resp B/P Pulse Ox O2 Delivery O2 Flow Rate FiO2 05/23/16 05:42 98.1 72 16 120/75 98 05/22/16 12:49 Room Air Mental Status Examination This is a 41-year-old black male who looks about the same as his stated age was alert oriented 3 cooperative casually dressed his speech was slow without any evidence of loose associations or flights of ideas or pressure speech his mood was described as feeling fine and wanting to leave as his girlfriend is out of custodial and they both want to go to [place] and gets into his treatment. He denied any active and passive suicidal ideation intentions or plan his affect was restricted with few appropriate smile. Patient denied any active auditory or visual hallucinations. No evidence of any formal paranoid delusion at this time. He seems to be of low average intelligence with poor recent memory is insight is fair and his judgment seems to be okay on hypothetical situation. His gait is normal. His language is normal. His fund of knowledge is average. Previous Suicide Attempts: Yes Previous Homicide Attempts: No Assessment & Plan Problem List: (1) Bipolar disorder, most recent episode depressed ICD Code: F31.30 (2) Polysubstance abuse ICD Code: F19.10 (3) Chronic post-traumatic stress disorder (PTSD) ICD Code: F43.12 Assessment & Plan Estimated LOS: 3 days. This is a 41-year-old black male with a history of bipolar affective disorder or posttraumatic stress disorder and polysubstance abuse. He manipulated to get into the hospital by lying saying that he was hearing voices and superficially he cut himself but he was denying any suicidal ideation intentions of plan. He wants to go to a drug rehabilitation in [place]. Was admitted observe evaluate and treat. Patient may sign voluntary. Patient will participate in all the therapeutic activity on the floor. We'll resume his Seroquel. Side effect another alternative treatment were explained to the patient. Vital signs every shift. financial services sales representative to assist in aftercare and discharge planning. Request HC Surrog/Guard Advoc?: Dawit Tolbert MD May 23, 2016 13:25
[2016-05-23 16:53] LABS: HEMOGLOBIN A1a 1.2 %; HEMOGLOBIN A1b 0.7 %; HEMOGLOBIN Ao 85.7 %; HEMOGLOBIN F 1.4 %; HEMOGLOBIN LA1C 1.9 %; HEMOGLOBIN P3 3.5 %
[2016-05-23 18:51] VITALS: BP 105/61; PULSE 62; RESP 16; TEMP 97.9; O2SAT 97
[2016-05-23] MEDS ORDERED: QUEtiapine FUMARATE 200 MG TAB PO SCH (21:00)
[2016-05-23] MEDS: PRAZOSIN HCL 1 MG CAP PO SCH (21:16)
[2016-05-24 06:06] VITALS: BP 90/50; PULSE 62; RESP 16; TEMP 97.3
[2016-05-24] MEDS: NICOTINE 21 MG/24 HR PATCH T-DERMAL SCH (09:00)
[2016-05-24] MEDS: REMOVE OLD NICOTINE PATCH T-DERMAL SCH (09:00)
[2016-05-24] MEDS: PHENYTOIN SODIUM 100 MG CAP PO SCH (09:07)
--- NOTE | 2016-05-24 10:42 | HHI.DS ---
Psychiatry Discharge Summary Inpatient Psychiatric care?: Yes Advance Directive: No Reason Not Provided: Due to Patient Condition Mental Health AdvanceDirective: No Health Care Proxy: No Admission Admission Date May 22, 2016 at 15:08 Admission Diagnosis: (1) Bipolar disorder, most recent episode depressed ICD Code: F31.30 (2) Polysubstance abuse ICD Code: F19.10 (3) PTSD (post-traumatic stress disorder) ICD Code: F43.10 GAF Score: 45 Brief History This is a 41-year-old black male [facility]. Has a history of bipolar affective disorder posttraumatic stress disorder alcohol abuse or drug-induced mood disorder. Was hospitalized under [place] act because he wanted to get in the hospital as his girlfriend was in the detention. So he superficially cut himself and called the police and said that he was suicidal and he was hearing voices. Patient claimed that he was lying all he wanted to do is just to come back in the hospital. He was abusing cocaine about 3 days ago. He does want to go for rehabilitation and stay away from that in [place]. Today he heard from his girlfriend was released from the detention and now he wants to patient wants to be discharged and follow-up as an outpatient. Patient denies any active suicidal ideation intentions or plan. He denies any auditory or visual hallucinations. Denied any paranoid delusion. No side effects were complained from the medication. He has been taking Dilantin and Seroquel. Willing to sign voluntary and stay 1 more day for observation Tobacco Use In Past 30 Days: 5 or More Cigarettes/Day Alcohol Use: 4 or More Times Per Week Hospital Course Patient was started on supportive treatment. Patient reported that he said something just to get in the hospital because his girlfriend was in the detention but then he found out that she was released and now he wanted to get out go back to [place] and follow-up with his outpatient therapy and treatment. Patient denied any suicidal ideation intentions or plan. Denied any active auditory or visual hallucinations. Willing to abstain from any substance use and/or abuse and follow-up as an outpatient patient wanted to go home with his girlfriend at that point arrangements were made for him to be discharged Results Blood Pressure 90 / 50 Vital Signs Date Time Temp Pulse Resp B/P Pulse Ox O2 Delivery O2 Flow Rate FiO2 05/24/16 06:06 97.3 62 16 90/50 05/23/16 18:51 97 05/22/16 12:49 Room Air Laboratory Tests Test 05/21/16 05/22/16 05/23/16 23:45 01:30 06:10 Monocytes (%) (Auto) 9.3 % (0.0-8.0) Carbon Dioxide Level 33.1 MEQ/L (21.0-32.0) Estimat Glomerular Filtration 78 ML/MIN (>89) Rate Ethyl Alcohol Level 20 MG/DL (0-5) Urine Cocaine Screen POS (NEG) Calcium Level 8.2 MG/DL (8.5-10.1) Cholesterol Level 106 MG/DL (120-200) Laboratory Results Test 05/23/16 06:10 Hemoglobin A1c 5.1 % (4.3-6.0) Triglycerides Level 122 MG/DL (42-150) Cholesterol Level 106 MG/DL (120-200) LDL Cholesterol 32 MG/DL (0-99) HDL Cholesterol 50.1 MG/DL (40.0-60.0) Summary of Major Lab Results Nothing significant Summary of Procedures None Imaging None Pending results at discharge: No Medications # of Antipsychotic meds at D/C: 1 Appropriate >1 Antipsych meds?: 2 Approp Antipsych med options 1 - Minimum of three failed multiple trials of monotherapy. Discharge Discharge Date: May 24, 2016 Discharge Diagnosis: (1) Bipolar disorder, most recent episode depressed Diagnosis: Principal ICD Code: F31.30 (2) Polysubstance abuse Diagnosis: Principal ICD Code: F19.10 (3) PTSD (post-traumatic stress disorder) ICD Code: F43.10 Mental Status Exam at Disch Patient was alert oriented 3 cooperative. His speech was slow without any evidence of loose association. Patient was willing to follow-up as an outpatient and abstain from any alcohol and drug use and/or abuse. Patient denied any suicidal ideation intentions or plan. Denies any active auditory or visual hallucinations. Willing to take the medication. Wants to go with his girlfriend to [facility] Pt Condition on Discharge: Stable Discharge Disposition: Discharge Home Discharge Instructions Diet Instructions: As Tolerated, No Restrictions Activities you can perform: Regular-No Restrictions Scheduled Appointment: [facility] Appointment Date: May 29, 2016 Appointment Time: 1:45 Discharge Time <= 30 minutes Discharge/Advance Care Plan Health Problems: (1) Bipolar disorder, most recent episode depressed (2) Polysubstance abuse (3) Chronic post-traumatic stress disorder (PTSD) Goals to promote your health * To prevent worsening of your condition and complications * To maintain your health at the optimal level Directions to meet your goals Take your medications as prescribed Follow your dietary instruction Follow activity as directed Keep your appointments as scheduled Take your immunizations and boosters as scheduled If your symptoms worsen call your PCP, if no PCP go to Urgent Care Center or Emergency Room For 03/12 questions related to your inpatient stay or results of tests pending at discharge, please contact Dr. Dawit Hargrove at Smoking is Dangerous to Your Health. Avoid second hand smoking Dawit Hargrove MD May 24, 2016 10:42
[2016-05-24] MEDS ORDERED: QUET1TAB9 PO (10:43)
== END 2016-05-24 11:50 | disposition home or self-care (01) | DRG 885 ==
LOC: NEPA 22:47 → NEDA 05-22 15:08 → H260 05-22 15:40
PROVIDERS: ADMIT Psychiatry & Neurology Psychiatry; ATTEND Psychiatry & Neurology Psychiatry
DX: F31.9 Bipolar disorder, unspecified (principal); G40.909 Epilepsy, unspecified, not intractable, without status epilepticus; F14.10 Cocaine abuse, uncomplicated; F43.12 Post-traumatic stress disorder, chronic; Z81.8 Family history of other mental and behavioral disorders; F19.10 Other psychoactive substance abuse, uncomplicated; I25.2 Old myocardial infarction; R35.0 Frequency of micturition; B19.20 Unspecified viral hepatitis C without hepatic coma; M17.11 Unilateral primary osteoarthritis, right knee; M54.9 Dorsalgia, unspecified; G89.29 Other chronic pain; F17.210 Nicotine dependence, cigarettes, uncomplicated; S51.811A Laceration without foreign body of right forearm, initial encounter; X78.9XXA Intentional self-harm by unspecified sharp object, initial encounter; Y92.9 Unspecified place or not applicable
CPT/HCPCS: 80048; 80053; 80061; 80307; 80320; 83036; 85025; 90471; 90714

== ENCOUNTER 2017-06-18 07:07 | Emergency (ER) | payer OTHER ==
[~2017-06-18] VITALS: Ht 182.9 cm; Wt 71.0 kg
[~2017-06-18 07:07] MED LIST changes: +QUET1TAB9 PO
[2017-06-18 07:09] VITALS: BP 141/84; PULSE 85; RESP 18; TEMP 97.8; O2SAT 100
--- NOTE | 2017-06-18 07:43 | PD ---
HPI Chief Complaint: Abdominal Pain Time Seen by Provider: 07:42 Travel History International Travel<30 days: No Contact w/Intl Traveler<30days: No Traveled to known affect area: No History of Present Illness HPI 42-year-old male came to the emergency room with some history of suprapubic pain that started 3 hours prior to him coming to the emergency room. Patient lives in a senior living. He points to his lower abdomen and says that he has never had this pain before. No history of nausea or vomiting. No history of diarrhea or constipation. Patient has history of psychiatric disorder and is on psych medications. Vital signs were stable. No obvious distress noticed when I was talking to the patient. Pain is not radiational and no aggravating or relieving factors identified. PFSH Past Medical History Narrative Medical List of his past medical, surgical, social and family history reviewed from the nursing note. Autoimmune Disease: No Blood Disorders: No Bipolar Disorder: Yes Anxiety: Yes Depression: Yes Heart Rhythm Problems: Yes (palpatations ) Cancer: No Cardiac Catheterization: Yes (10/2015 NO STENTS PLACED PER PT) Cardiovascular Problems: Yes High Cholesterol: No Chest Pain: Yes Diabetes: No Diminished Hearing: No Endocrine: No Genitourinary: No Headaches: No Hepatitis: Yes (C) Hypertension: No Immune Disorder: No Implanted Vascular Access Dvce: No Musculoskeletal: No Neurologic: Yes Psychiatric: Yes (Hx of treatment for PTSD, Bipolar Disorder and Anxiety) Reproductive: No Respiratory: No Myocardial Infarction: Yes (OCTOBER 2015 PER PT) Seizures: Yes Influenza Vaccination: No Past Surgical History Eye Surgery: Yes (RIGHT) Other Surgery: No (Right eye surgery ) Social History Alcohol Use: No Tobacco Use: Yes Substance Use: Yes (hx alcohol abuse, cocaine) Allergies-Medications (Allergen,Severity, Reaction): Coded Allergies: haloperidol (Unverified Allergy, Severe, 06/18/17) per patient Comments List of his allergies reviewed from the nursing note. Reported Meds & Prescriptions Reported Meds & Active Scripts Active Reported Dilantin (Phenytoin Extended) 100 Mg Cap 200 Mg PO BID Seroquel (Quetiapine Fumarate) 200 Mg Tab 100 Mg PO HS Lorazepam 2 Mg Tab 2 Mg PO BID PRN Minipress (Prazosin HCl) 1 Mg Cap 1 Mg PO HS Lexapro (Escitalopram Oxalate) 10 Mg Tab 10 Mg PO DAILY Narrative Medication List of his home medications reviewed from the nursing note Review of Systems Except as stated in HPI: all other systems reviewed are Neg Gastrointestinal: Positive: Abdominal Pain Physical Exam Narrative GENERAL: Awake, alert, no obvious distress SKIN: Focused skin assessment warm/dry. HEAD: Atraumatic. Normocephalic. EYES: Pupils equal and round. No scleral icterus. No injection or drainage. ENT: No nasal bleeding or discharge. Mucous membranes pink and moist. NECK: Trachea midline. No JVD. CARDIOVASCULAR: Regular rate and rhythm. No murmur appreciated. RESPIRATORY: No accessory muscle use. Clear to auscultation. Breath sounds equal bilaterally. GASTROINTESTINAL: Abdomen soft, non-tender, nondistended. Hepatic and splenic margins not palpable. MUSCULOSKELETAL: No obvious deformities. No clubbing. No cyanosis. No edema. NEUROLOGICAL: Awake and alert. No obvious cranial nerve deficits. Motor grossly within normal limits. Normal speech. PSYCHIATRIC: Appropriate mood and affect; insight and judgment normal. Data Data Last Documented VS Orders Orders Complete Blood Count With Diff (06/18/17 07:45) Comprehensive Metabolic Panel (06/18/17 07:45) Urinalysis - C+S If Indicated (06/18/17 07:45) Iv Access Insert/Monitor (06/18/17 07:45) Ecg Monitoring (06/18/17 07:45) Oximetry (06/18/17 07:45) Sodium Chloride 0.9% Flush (Ns Flush) (06/18/17 07:45) Lipase (06/18/17 07:45) Ed Discharge Order (06/18/17 09:27) Labs Laboratory Tests Test 06/18/17 07:58 06/18/17 09:02 White Blood Count 5.3 TH/MM3 Red Blood Count 5.27 MIL/MM3 Hemoglobin 16.4 GM/DL Hematocrit 47.0 % Mean Corpuscular Volume 89.1 FL Mean Corpuscular Hemoglobin 31.1 PG Mean Corpuscular Hemoglobin Concent 34.9 % Red Cell Distribution Width 14.4 % Platelet Count 242 TH/MM3 Mean Platelet Volume 7.8 FL Neutrophils (%) (Auto) 65.8 % Lymphocytes (%) (Auto) 23.5 % Monocytes (%) (Auto) 8.9 % Eosinophils (%) (Auto) 0.9 % Basophils (%) (Auto) 0.9 % Neutrophils # (Auto) 3.5 TH/MM3 Lymphocytes # (Auto) 1.2 TH/MM3 Monocytes # (Auto) 0.5 TH/MM3 Eosinophils # (Auto) 0.0 TH/MM3 Basophils # (Auto) 0.0 TH/MM3 CBC Comment DIFF FINAL Differential Comment Blood Urea Nitrogen 6 MG/DL Creatinine 0.73 MG/DL Random Glucose 90 MG/DL Total Protein 8.3 GM/DL Albumin 3.6 GM/DL Calcium Level 8.8 MG/DL Alkaline Phosphatase 121 U/L Aspartate Amino Transf (AST/SGOT) 43 U/L Alanine Aminotransferase (ALT/SGPT) 40 U/L Total Bilirubin 0.3 MG/DL Sodium Level 141 MEQ/L Potassium Level 3.8 MEQ/L Chloride Level 106 MEQ/L Carbon Dioxide Level 30.0 MEQ/L Anion Gap 5 MEQ/L Estimat Glomerular Filtration Rate 117 ML/MIN Lipase 189 U/L Urine Color YELLOW Urine Turbidity CLEAR Urine pH 8.0 Urine Specific Brandon 1.014 Urine Protein TRACE mg/dL Urine Glucose (UA) NEG mg/dL Urine Ketones NEG mg/dL Urine Occult Blood NEG Urine Nitrite NEG Urine Bilirubin NEG Urine Urobilinogen 2.0 MG/DL Urine Leukocyte Esterase NEG Urine RBC 1 /hpf Urine Bacteria RARE /hpf Urine Mucus FEW /lpf Microscopic Urinalysis Comment CULT NOT INDICATED MDM Medical Decision Making Medical Screen Exam Complete: Yes Emergency Medical Condition: Yes Medical Record Reviewed: Yes Differential Diagnosis UTI, abdominal pain NOS Narrative Course 9:11 AM blood test results are back and within normal limits. Given my clinical impression I do not see an acute abdomen on my exam and hence I did not order a CT scan or any other imaging study. If test result is negative I will discharge him home. Procedures EKG Prior to Arrival: No Diagnosis Primary Impression: Abdominal pain Qualified Codes: R10.30 - Lower abdominal pain, unspecified Referrals: Primary Care Physician Additional Instructions: Take Motrin/Tylenol/ibuprofen/Advil for the pain. Follow-up with your primary care. Return to ER if condition worsens or any other new concerns. Disposition: 01 DISCHARGE HOME Condition: Stable Malini Wu MD Jun 18, 2017 07:43
[2017-06-18] MEDS ORDERED: SODIUM CHLORIDE 0.9% FLUSH 10 ML FLUSH IV FLUSH PRN (07:45)
[2017-06-18 08:04] VITALS: O2SAT 99
[2017-06-18 08:13] LABS: AUTOMATED NEUTROPHIL # 3.5 TH/MM3 (1.8-7.7); BASOPHIL % 0.9 % (0.0-2.0); EOSINOPHIL % 0.9 % (0.0-4.0); HEMOGLOBIN 16.4 GM/DL (13.0-17.0); LYMPH % 23.5 % (9.0-44.0); LYMPHOCYTE # 1.2 TH/MM3 (1.0-4.8); MEAN CELL VOLUME 89.1 FL (80.0-100.0); MEAN CORPUSCULAR HEMOGLOBIN 31.1 PG (27.0-34.0); MEAN CORPUSCULAR HGB CONC 34.9 % (32.0-36.0); MEAN PLATELET VOLUME 7.8 FL (7.0-11.0); MONO % 8.9 % (0.0-8.0); MONOCYTE # 0.5 TH/MM3 (0-0.9); NEUT % 65.8 % (16.0-70.0); PLATELET COUNT 242 TH/MM3 (150-450); RED BLOOD COUNT 5.27 MIL/MM3 (4.50-5.90); RED CELL DISTRIBUTION WIDTH 14.4 % (11.6-17.2); WHITE BLOOD COUNT 5.3 TH/MM3 (4.0-11.0)
[2017-06-18 08:27] LABS: ALBUMIN 3.6 GM/DL (3.4-5.0); ALT (GPT) 40 U/L (12-78); AST (GOT) 43 U/L (15-37); BLOOD UREA NITROGEN 6 MG/DL (7-18); CALCIUM 8.8 MG/DL (8.5-10.1); CHLORIDE 106 MEQ/L (98-107); CREATININE 0.73 MG/DL (0.60-1.30); GLOMERULAR FILTRATION RATE 117 ML/MIN (>89); GLUCOSE,RANDOM 90 MG/DL (74-106); SODIUM (NA) 141 MEQ/L (136-145)
[2017-06-18 08:28] LABS: ALKALINE PHOSPHATASE 121 U/L (45-117); TOTAL BILIRUBIN ADULT 0.3 MG/DL (0.2-1.0); TOTAL PROTEIN 8.3 GM/DL (6.4-8.2)
[2017-06-18 09:17] LABS: BACTERIA, URINE RARE /hpf; BILIRUBIN, URINE NEG (NEG); BLOOD, URINE NEG (NEG); GLUCOSE,URINE NEG (NEG); KETONE, URINE NEG (NEG); MUCUS URINE FEW /lpf (OCC); NITRITE,URINE NEG (NEG); URINE COLOR YELLOW (YELLW/STRAW); URINE LEUKOCYTE ESTERASE NEG (NEG)
== END 2017-06-18 09:52 | disposition home or self-care (01) ==
LOC: NEPE 07:07
DX: R10.30 Lower abdominal pain, unspecified (principal); F31.9 Bipolar disorder, unspecified; Z72.0 Tobacco use
CPT/HCPCS: 80053; 81001; 83690; 85025; 99283